=== PATIENT | female | born 1960 | race Asian ===

== ENCOUNTER 2025-01-05 08:41 | Outpatient (CLI) | payer MEDICAID ==
[~2025-01-05 08:41] MED LIST: ASPI81TA94 PO; FAMO-129 PO; OSC500T PO; SERT25TA84 PO; [UNRECOGNIZED DRUG - REMARK]
--- NOTE | 2025-01-05 10:11 | RADIOLOGY REPORT ---
PROCEDURE: MR MRI LUMBAR SPINE INDICATION: OTHER INTERVERTEBRAL DISC DISORDERS, LUMBAR REGION Exam Date: 01/05/2025 08:33 AM COMPARISON: None TECHNIQUE: MRI lumbar spine without intravenous contrast. FINDINGS: The lumbar alignment is intact. There are degenerative endplate changes including modic endplate ch anges with anterior and lateral osteophytes throughout the lumbar spine. The visualized distal spinal cord and conus medullaris are within normal limits. The conus medullaris appears to terminate withi n normal limits. The visualized retroperitoneal and paraspinal soft tissues are unremarkable. The following axial levels are detailed below: T12-L1: Unremarkable. L1-L2: Unremarkable. L2-L3: There is a mild circumferential disc bulge. No significant central canal or neuroforaminal s tenosis. L3-L4: There is a moderate circumferential disc bulge complicated by facet arthropathy associated w ith mild to moderate bilateral neuroforaminal stenosis left greater than right. No significant centra l canal stenosis. L4-L5: There is a severe circumferential disc bulge complicated by facet arthropathy narrowing the central canal to 8 mm with associated moderate to severe bilateral neuroforaminal stenosis right grea ter than left. L5-S1: There is a severe circumferential disc bulge complicated by facet arthropathy narrowing the c entral canal to 9 mm with associated moderate to severe bilateral neuroforaminal stenosis. IMPRESSION: 1. Multilevel degenerative disease. Moderate central canal stenosis L4-Mild central canal stenosis L5 -SNeural foraminal stenosis as above. HS:Y
== END 2025-01-05 23:59 | disposition home or self-care (01) ==
LOC: MRI02 08:41
PROVIDERS: ATTEND Physician Assistant
DX: M51.379 Other intervertebral disc degeneration, lumbosacral region without mention of lumbar back pain or lower extremity pain (principal); M47.817 Spondylosis without myelopathy or radiculopathy, lumbosacral region; M48.07 Spinal stenosis, lumbosacral region; M25.78 Osteophyte, vertebrae; M51.86 Other intervertebral disc disorders, lumbar region
CPT/HCPCS: 72148